=== PATIENT | female | born 1995 | race Caucasian/White ===

== ENCOUNTER 2021-08-24 15:05 | Emergency (ER) | payer OTHER, SELFPAY ==
[2021-08-24 15:29] VITALS: BP 124/72; PULSE 70; RESP 18; TEMP 36.3; O2SAT 100
--- NOTE | 2021-08-24 16:04 | ED_ITS ---
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 Patient was bleeding from her left index finger. Patient does not know the dental patient's HIV or hepatitis status, however nothing was in his chart to this effect. Related Information Previous Rx's Medication Instructions Recorded emtricitabine 200 mg-tenofovir 1 tab PO DAILY 7 Days #7 tab 08/24/21 disoproxil fumarate 300 mg tablet (Truvada) Allergies Allergy/AdvReac Type Severity Reaction Status Date / Time No Known Allergies Allergy Verified 08/24/21 15:29 [No Known Allergies*] Review of Systems Constitutional: Constitutional: Denies body ache(s), Denies chills, Denies fatigue, Denies fever(s), Denies headache(s), Denies malaise and Denies weakness Eyes: Eyes: Denies diplopia ENT: Denies vertigo, Denies dizziness, Denies otalgia, Denies headache(s), Denies mouth pain, Denies post nasal drip, Denies sinus pain, Denies sinus pressure, Denies sore throat and Denies throat swelling Cardiovascular: Cardiovascular: Denies chest pain, Denies syncope, Denies leg edema, Denies lightheadedness, Denies Loss of Consciousness, Denies palpitations and Denies dyspnea Respiratory: Respiratory: Denies chest congestion, Denies cough and Denies dyspnea Gastrointestinal: Gastrointestinal: Denies abdominal pain, Denies hematochezia, Denies constipation, Denies diarrhea and Denies vomiting Musculoskeletal: Musculoskeletal: Reports no additional musculoskeletal complaints Neurologic: Denies confusion, Denies vertigo, Denies dizziness, Denies syncope, Denies headache(s) and Denies weakness Psychiatric: Psychiatric: Denies anxiety, Denies confusion and Denies depression Endocrine: Endocrine: Denies fatigue and Denies palpitations Allergic/Immunologic: Allergic/Immunologic: Denies throat swelling PMFSH Social History Social History Advance Directives: No Advance Directives Information Provided: No Physical Exam Vital Signs: Vital Signs: Last Vital Signs Temp 97.4 F 08/24/21 15:29 Pulse 70 08/24/21 15:29 Resp 18 08/24/21 15:29 BP 124/72 08/24/21 15:29 Pulse Ox 100 08/24/21 15:29 Body Mass Index 0.2 Const: General: No confusion Nutritional Appearance: well nourished Orientation/consciousness: No confusion Limitations: no limitations HENMT: Head: Yes normal to inspection, Yes normocephalic and Yes atraumatic Ears: hearing grossly normal bilaterally, external ears normal, TM's normal bilaterally and EAC's normal General nose exam: Normal external nose present Face and sinus: Yes normal facial exam and Yes sinuses nontender Mouth: Normal oral and palatal mucosa present Throat: Yes posterior oropharynx normal Eyes: Conjunctivae: conjunctivae normal Pupils: Equal, round and reactive pupils present EOM: EOMs intact bilaterally Neck: Neck: Yes full ROM, Yes no lymphadenopathy and Yes supple Resp: Effort & Inspection: normal respiratory effort and able to speak in complete sentences Auscultation: clear to auscultation bilaterally, no crackles, no rales, no rhonchi and no wheezes Cardio: Rate: regular rate Rhythm: regular rhythm Heart sounds: S1 normal heart sound present and S2 normal heart sound present GI: Inspection: Yes normal to inspection Palpation (GI): Soft to palpation, nontender, no guarding and not rigid Percussion: Yes normal to percussion Auscultation: normal bowel sounds Skin: General skin exam: no rashes or lesions noted Neuro: General: No confusion Cranial nerves: Yes Equal, round and reactive pupils present Extrem: General: Yes normal to inspection and Yes full ROM Psych: Appearance: grossly normal Affect: normal affect Attitude: cooperative Thought process: Normal thought process present Course Course Course Narrative: 18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 Patient was counseled about the utility of starting Truvada. Patient states her workplace will test the dental patient, and she should know in the next 48 hours if patient is HIV positive for hepatitis positive. I counseled patient to start Truvada, stating she could stop it if is patient's blood work came back negative. I darling a CBC, CMP, hepatitis panel, HIV exposure panel. Referred patient to [facility]. Told patient she must call [facility] for an appointment early next week, as I only gave her 1 week prescription of Truvada. Patient verbalized agreement and understanding of the plan. MDM - Medical Clearance Lab Data Result diagrams: 08/24/21 16:34 08/24/21 16:34 Labs: Lab Results 08/24/21 08/24/21 Range/Units 16:34 16:34 WBC 11.9 H (4.8-10.8) X10*3/uL RBC 4.47 (4.20-5.50) X10*6/uL Hgb 12.7 (12.0-16.0) g/dl Hct 37.2 (37-47) % MCV 83.2 (80-98) fL MCH 28.4 (27.0-33.0) pg MCHC 34.1 (31.0-35.0) g/dl RDW 13.8 (11.0-16.0) % Plt Count 224 (160-400) X10*3/uL MPV 10.7 (9.4-12.3) fL Immature Gran % (Auto) 0.5 H (0.0-0.4) % Neut % (Auto) 65.7 (45-73) % Lymph % (Auto) 25.8 (20-40) % [place] % (Auto) 5.6 (2-11) % Eos % (Auto) 1.9 (0-4) % Baso % (Auto) 0.5 (0-2) % Lymph # (Auto) 3.1 (1.2-4.9) X10*3/uL [place] # (Auto) 0.7 (0.1-1.2) X10*3/uL Eos # (Auto) 0.2 (0.0-0.4) X10*3/uL Baso # (Auto) 0.1 (0.0-0.2) X10*3/uL Abs Immat Gran (auto) 0.06 H (0.00-0.03) X10*3/uL Absolute Neuts (auto) 7.8 (2.0-8.3) X10*3/uL Absolute Nucleated RBC 0.000 (0.0-0.012) X10*3/uL Nucleated RBC % (auto) 0.0 (0.0-0.2) /100WBC Sodium 140 (135-145) mmol/L Potassium 3.9 (3.3-5.1) mmol/L Chloride 108 (96-108) mmol/L Carbon Dioxide 25 (22-29) mmol/L Anion Gap 11 L (12-20) BUN 11 (9-16) mg/dL Creatinine 0.82 (0.5-1.4) mg/dL Estim Creat Clear Calc 118.4 Estimated GFR > 60 Random Glucose 87 (60-115) mg/dL Calcium 9.2 (8.4-10.2) mg/dL Total Bilirubin 0.3 (0.0-1.0) mg/dL AST 11 (5-31) U/L ALT 6 (0-31) U/L Alkaline Phosphatase 57 (39-117) U/L Total Protein 7.4 (6.5-8.0) g/dL Albumin 4.3 (3.5-5.0) g/dL Discharge Plan Discharge Clinical Impression: Employee exposure to body fluids Patient Disposition: Home, Self-Care Additional Instructions: Please call [facility] tomorrow at [phone] You need to be seen by them early next week. Please find out from your work the hepatitis and HIV status of your patient christopher mas. I have prescribed Truvada which I want you to start tonight. If your patient is HIV negative, you can stop the Truvada as soon as you find out the results. Please refrain from sexual intercourse. Prescriptions: New emtricitabine-tenofovir (TDF) [Truvada] 200-300 mg tablet 1 tab PO DAILY 7 Days Qty: 7 RF: 0 Referrals: [facility] [Outside] - 2 days Interventions: ED Discharge Assessment Last Done: 08/24/21 16:44 Discharge Date/Time: 08/24/21 16:45
[2021-08-24 16:40] LABS: MANUAL DIFF FLAG NO
[2021-08-24 16:43] LABS: Basophils Absolute Auto 0.1 X10*3/uL (0.0-0.2); Basophils Percent Auto 0.5 % (0-2); Eosinophils Absolute Auto 0.2 X10*3/uL (0.0-0.4); Eosinophils Percent Auto 1.9 % (0-4); Hematocrit 37.2 % (37-47); Hemoglobin 12.7 g/dl (12.0-16.0); Imm Gran Abs Auto 0.06 X10*3/uL (0.00-0.03); Imm Gran Pct Auto 0.5 % (0.0-0.4); Lymphocytes Absolute Auto 3.1 X10*3/uL (1.2-4.9); Lymphocytes Percent Auto 25.8 % (20-40); Mean Corpuscular HGB Conc 34.1 g/dl (31.0-35.0); Mean Corpuscular Hemoglobin 28.4 pg (27.0-33.0); Mean Corpuscular Volume 83.2 fL (80-98); Mean Platelet Volume 10.7 fL (9.4-12.3); Monocytes Absolute Auto 0.7 X10*3/uL (0.1-1.2); Monocytes Percent Auto 5.6 % (2-11); Neutrophils Absolute Auto 7.8 X10*3/uL (2.0-8.3); Neutrophils Percent Auto 65.7 % (45-73); Platelet Count 224 X10*3/uL (160-400); Red Blood Count 4.47 X10*6/uL (4.20-5.50); Red Cell Distribution Width 13.8 % (11.0-16.0); White Blood Count 11.9 X10*3/uL (4.8-10.8)
[2021-08-24 17:10] LABS: Alanine Aminotransferase 6 U/L (0-31); Albumin Level 4.3 g/dL (3.5-5.0); Alkaline Phosphatase 57 U/L (39-117); Anion Gap 11 (12-20); Aspartate Amino Transferase 11 U/L (5-31); Blood Urea Nitrogen 11 mg/dL (9-16); Calcium 9.2 mg/dL (8.4-10.2); Carbon Dioxide 25 mmol/L (22-29); Chloride 108 mmol/L (96-108); Creatinine Clr Calc Pharmacy 118.4; Estimated Glomerular Filt Rate > 60; Glucose Random 87 mg/dL (60-115); Potassium 3.9 mmol/L (3.3-5.1); Sodium 140 mmol/L (135-145); Total Protein 7.4 g/dL (6.5-8.0)
[2021-08-24 17:20] LABS: Bilirubin Total 0.3 mg/dL (0.0-1.0)
[2021-08-25 04:41] LABS: HBsAGNum1 0.19 S/CO (0.00-0.99); HIV AB/AG Nonreactive (Nonreactive); HIV Num 1 0.06 S/CO (0.00-0.99); Hepatitis B Surface Antigen Negative (Negative); ~HepC Num1 0.14 S/CO (0.00-0.79); ~Hepatitis C Antibody Nonreactive (Nonreactive)
[2021-08-25 04:50] LABS: HBS Num1 295.75 mIU/mL (0-7.99); HBc Num1 0.07 S/CO (0.00-0.79); Hepatitis B Core Antibody Nonreactive (Nonreactive); ~Hepatitis B Surface Antibody REACTIVE (Nonreactive)
[2021-08-26 04:02] LABS: Hepatitis A Antibody IgM 0.17 Index (0-0.79); ~Hepatitis A Antibody IgM Nonreactive (Nonreactive)
== END 2021-08-24 16:45 | disposition home or self-care (01) ==
PROVIDERS: Physician Assistant; Emergency Provider Emergency Medicine Emergency Medical Services
DX: Z77.21 Contact with and (suspected) exposure to potentially hazardous body fluids (principal)
CPT/HCPCS: 36415; 80053; 85025; 86704; 86706; 86709; 86803; 87340; 99283

== ENCOUNTER 2022-12-15 18:25 | Emergency (ER) | payer OTHER, SELFPAY ==
[2022-12-15 18:30] VITALS: BP 134/67; BP 142/99; PULSE 72; PULSE 77; RESP 16; TEMP 36.7; O2SAT 100; O2SAT 97; BMI 31.0
--- NOTE | 2022-12-15 18:54 | ED.GENADULT ---
HPI - General Adult General Chief complaint: Skin/Abscess/Foreign Body Stated complaint: allergic reaction Time Seen by Provider: 12/15/22 18:46 History of Present Illness HPI narrative: patient complains of hives rash which started 3 days ago and has been coming and going, Benadryl seems to help and she has taken Benadryl twice but the rash comes back a few hours later No associated symptoms no difficulty breathing no swelling no feeling faint no swelling of lips or mouth no pain no throat swelling no difficulty speaking swallowing or breathing Related Data Previous Rx's Medication Instructions Recorded emtricitabine 200 mg-tenofovir 1 tab PO DAILY 7 days #7 tabs 08/24/21 disoproxil fumarate 300 mg tablet (Truvada) cetirizine 10 mg tablet 10 mg PO DAILY PRN hives #20 tabs 12/15/22 Allergies Allergy/AdvReac Type Severity Reaction Status Date / Time No Known Allergies Allergy Verified 12/15/22 18:35 [No Known Allergies*] PMF Past Medical History Source: nursing notes reviewed Social History Social History Advance Directives: No Advance Directives Information Provided: No Physical Exam ED Vital Signs: Vital Signs - 24 hr 12/15/22 18:30 Temperature 98.1 F Pulse Rate 77 Respiratory Rate 16 Blood Pressure 134/67 Pulse Oximetry 97 Oxygen Delivery Method Room Air BMI result Body Mass Index 31.0 General appearance no distress comfortable relaxed The eyes no redness or discharge Nose no congestion The pharynx is clear without any swelling of lips tongue or uvula no redness swelling or exudate no drooling, voice is normal Neck is supple The chest is clear to auscultation bilateral with full symmetric equal breath sounds Heart no murmur Extremities full range of motion x4 Skin there is faint hives rash on arms trunk and neck, there are no petechiae no purpura no skin breakdown no wounds Course Course Course Narrative: patient with intermittent waxing and waning hives over the last 3 days that seems to respond to Benadryl and go away but then comes back a few hours later, she has taken no other medication Plan is 24 hour second-generation antihistamine and well-appearing patient is discharged Medications Administered Discontinued Medications Generic Name Dose Route Start Last Admin Trade Name Freq PRN Reason Stop Dose Admin Loratadine 10 mg 12/15/22 19:07 12/15/22 19:09 Loratadine 10 Mg Tablet PO 12/15/22 19:08 10 mg ONCE ONE Administration Discharge Plan Discharge Clinical Impression: Urticaria Patient Disposition: Home, Self-Care Additional Instructions: hives is usually treated successfully with antihistamine But Benadryl only lasts for few hours and it produces drowsiness so Benadryl is not the best medication We are stopping Benadryl and switching to cetirizine, Zyrtec, which lasts 24 hours Plan is Zyrtec once a day and if that works you do not need to take any other medication If the Zyrtec once a day is not enough and you are still getting hives it is very safe to take a 2nd Zyrtec 12 hours later so it is okay to take Zyrtec twice a day If that does not work follow with her doctor Return to the ER any time for difficulty breathing, swelling, difficulty swallowing, any worse condition or any concerns Prescriptions: New cetirizine 10 mg tablet 10 mg PO DAILY PRN (Reason: hives) Qty: 20 0RF No Action emtricitabine-tenofovir (TDF) [Truvada] 200-300 mg tablet 1 tab PO DAILY 7 Days Qty: 7 0RF Interventions: ED Discharge Assessment Last Done: 12/15/22 19:11 Discharge Date/Time: 12/15/22 19:11
[2022-12-15] MEDS: Loratadine 10 MG TABLET PO (19:09)
== END 2022-12-15 19:11 | disposition home or self-care (01) ==
PROVIDERS: Emergency Provider Student in an Organized Health Care Education/Training Program
DX: L50.0 Allergic urticaria (principal); Z79.899 Other long term (current) drug therapy
CPT/HCPCS: 99282; 99283

== ENCOUNTER 2023-02-12 08:34 | Outpatient (REF) | payer OTHER, SELFPAY ==
[2023-02-12 08:52] LABS: MANUAL DIFF FLAG NO
[2023-02-12 09:01] LABS: Basophils Absolute Auto 0.1 X10*3/uL (0.0-0.2); Basophils Percent Auto 0.7 % (0-2); Eosinophils Absolute Auto 0.6 X10*3/uL (0.0-0.4); Eosinophils Percent Auto 6.1 % (0-4); Hematocrit 38.1 % (37.0-47.0); Hemoglobin 12.7 g/dl (12.0-16.0); Imm Gran Abs Auto 0.04 X10*3/uL (0.00-0.03); Imm Gran Pct Auto 0.4 % (0.0-0.4); Lymphocytes Absolute Auto 2.7 X10*3/uL (1.2-4.9); Lymphocytes Percent Auto 28.3 % (20-40); Mean Corpuscular HGB Conc 33.3 g/dl (31.0-35.0); Mean Corpuscular Hemoglobin 27.4 pg (27.0-33.0); Mean Corpuscular Volume 82.3 fL (80.0-98.0); Mean Platelet Volume 10.3 fL (9.4-12.3); Monocytes Absolute Auto 0.6 X10*3/uL (0.1-1.2); Monocytes Percent Auto 5.9 % (2-11); Neutrophils Absolute Auto 5.6 x10*3/uL (2.0-8.3); Neutrophils Percent Auto 58.6 % (45-73); Platelet Count 268 X10*3/uL (160-400); Red Blood Count 4.63 X10*6/uL (4.20-5.50); Red Cell Distribution Width 13.9 % (11.0-16.0); White Blood Count 9.5 X10*3/uL (4.8-10.8)
[2023-02-12 09:46] LABS: Alanine Aminotransferase 16 U/L (0-31); Alkaline Phosphatase 75 U/L (39-117); Anion Gap 10 (12-20); Aspartate Amino Transferase 15 U/L (5-31); Bilirubin Total 0.4 mg/dL (0.0-1.0); Blood Urea Nitrogen 14 mg/dL (9-16); Calcium 8.9 mg/dL (8.4-10.2); Carbon Dioxide 23 mmol/L (22-29); Chloride 109 mmol/L (96-108); Cholesterol 237 mg/dL; Estimated Glomerular Filt Rate > 60; Glucose Random 106 mg/dL (60-115); HDL Cholesterol 66 mg/dL; LDL Cholesterol Calculated 155 mg/dl; Potassium 4.3 mmol/L (3.3-5.1); Sodium 138 mmol/L (135-145); Total Protein 6.9 g/dL (6.5-8.0); Triglycerides 82 mg/dL
[2023-02-12 09:54] LABS: Cortisol Random 3.3 ug/dL
[2023-02-12 09:55] LABS: T4 Thyroxine 5.3 ug/dL (4.5-12.0); Thyroid Stimulating Hormone 1.98 uIU/mL (0.32-4.0)
[2023-02-12 11:13] LABS: Reflex LDLD? No
[2023-02-14 00:58] LABS: Triiodothyronine T3 Total 117 ng/dL (76-181)
[2023-02-14 03:49] LABS: Thyroid Peroxidase Antibodies <1 IU/mL (<9)
[2023-02-15 15:13] LABS: Anti Nuclear Antibody Screen NEGATIVE (NEGATIVE)
[2023-02-17 16:58] LABS: Adrenocorticotropic Hormone 11 pg/mL (6-50)
== END 2023-02-12 08:35 | disposition home or self-care (01) ==
LOC: HO.LAB 08:34
PROVIDERS: Visit Provider Neuromusculoskeletal Medicine, Sports Medicine
DX: Z00.00 Encounter for general adult medical examination without abnormal findings (principal); Z91.09 Other allergy status, other than to drugs and biological substances
CPT/HCPCS: 36415; 80053; 80061; 82024; 82533; 82785; 84436; 84443; 84480; 85025; 86003; 86038; 86039; 86376